=== PATIENT | female | born 1970 | race Two or more races ===

== ENCOUNTER 2024-01-03 11:58 | Emergency (ER) | payer SELFPAY ==
[~2024-01-03] VITALS: Ht 172.7 cm; Wt 90.9 kg
[2024-01-03 12:44] VITALS: BP 128/82; PULSE 140; RESP 24; TEMP 98; O2SAT 96
[2024-01-03] MEDS: ACETAMINOPHEN 500 MG TAB PO ONE (13:06)
[2024-01-03] MEDS ORDERED: IBUP-1456 PO (13:49)
[2024-01-03] MEDS ORDERED: METH-1182 PO (13:49)
== END 2024-01-03 14:02 | disposition home or self-care (01) ==
LOC: EDBD 11:58 → ER 11:58
DX: S16.1XXA Strain of muscle, fascia and tendon at neck level, initial encounter (principal); S39.012A Strain of muscle, fascia and tendon of lower back, initial encounter; S63.502A Unspecified sprain of left wrist, initial encounter; Z79.899 Other long term (current) drug therapy; V49.9XXA Car occupant (driver) (passenger) injured in unspecified traffic accident, initial encounter; Y93.89 Activity, other specified; Y92.89 Other specified places as the place of occurrence of the external cause; Y99.8 Other external cause status
CPT/HCPCS: 72040; 72100; 73110